=== PATIENT | female | born 1960 | race Caucasian/White ===

== ENCOUNTER → 2023-10-04 15:33 | Outpatient (REF) | payer BC, SELFPAY | LOC: RAD 15:33 | PROVIDERS: ATTENDING PHYSICIAN Orthopaedic Surgery; FAMILY PHYSICIAN Family Medicine | DX: M25.511 Pain in right shoulder (principal) | CPT/HCPCS: 73200 ==

== ENCOUNTER 2023-10-12 06:06 | Day surgery (SDC) | payer BC, SELFPAY ==
[2023-10-08 13:46] VITALS: BMI 35.1
[2023-10-08 14:38] LABS: Hematocrit 39.3 % (37.0-47.0); Hemoglobin 13.8 g/dL (12.0-16.0); Mean Corp Hgb Conc. 35.1 g/dL (33.0-37.0); Mean Corpuscular Hgb 31.1 pg (27.0-31.0); Mean Corpuscular Volume 88.5 fL (81.0-99.0); Mean Platelet Volume 10.3 fL (7.4-10.4); Platelet Count 323 10^3/uL (130-400); Red Blood Cell Count 4.44 10^6/uL (4.20-5.40); Red Cell Dist. Width 12.7 % (11.5-14.5); White Blood Cell Count 8.5 10^3/uL (4.8-10.8)
[2023-10-08 15:15] LABS: ALT (SGPT) 25 U/L (0-35); AST (SGOT) 26 U/L (14-36); Albumin 4.2 g/dl (3.5-5.0); Alkaline Phosphatase 86 U/L (38-126); Blood Urea Nitrogen 19 mg/dl (7-17); Calcium 10.3 mg/dl (8.4-10.2); Carbon Dioxide 26 mmol/L (22-30); Chloride 106 mmol/L (98-107); Estimated Creatinine Clearance 104 ml/min; Glucose 78 mg/dl (70-99); Potassium 4.6 mmol/L (3.5-5.1); Sodium 140 mmol/L (135-145); Total Bilirubin 0.8 mg/dl (0.2-1.3); Total Protein 6.4 g/dl (6.3-8.2); eGFR > 60.00
[2023-10-09 15:47] LABS: Glycohemoglobin (HgbA1c) 5.4 % (4.0-5.6)
[2023-10-12] VITALS (9 sets, daily range): BP systolic 108–140; BP diastolic 65–94; BMI 35.1
[2023-10-12] MEDS: CELEBREX 200 MG PO (06:20)
[2023-10-12] MEDS: TYLENOL 1000 MG PO (06:21)
[2023-10-12] MEDS: NORMOSOL-R 1000 IV (06:40)
[2023-10-12] MEDS: ANCEF 5 IV (12:03)
== END 2023-10-12 12:32 | disposition home or self-care (01) ==
LOC: SDS 06:06
PROVIDERS: ATTENDING PHYSICIAN Orthopaedic Surgery; FAMILY PHYSICIAN Family Medicine
DX: S42.291A Other displaced fracture of upper end of right humerus, initial encounter for closed fracture (principal); W19.XXXA Unspecified fall, initial encounter
CPT/HCPCS: 23472; 36415; 73020; 80053; 83036; 85027; 87070; 93005; C1713; C1776

== ENCOUNTER 2023-11-02 18:05 | Outpatient (RCR) | payer BC, SELFPAY | END 2023-11-02 23:59 | disposition home or self-care (01) | LOC: RPT 18:05 | PROVIDERS: ATTENDING PHYSICIAN Orthopaedic Surgery; FAMILY PHYSICIAN Family Medicine | DX: Z47.1 Aftercare following joint replacement surgery (principal); Z96.611 Presence of right artificial shoulder joint | CPT/HCPCS: 97010; 97110; 97140; 97161 ==

== ENCOUNTER → 2023-11-13 08:21 | Outpatient (REF) | payer BC, SELFPAY ==
[2023-11-13 10:32] LABS: ALT (SGPT) 31 U/L (0-35); AST (SGOT) 27 U/L (14-36); Albumin 4.3 g/dl (3.5-5.0); Alkaline Phosphatase 98 U/L (38-126); Blood Urea Nitrogen 17 mg/dl (7-17); Calcium 10.6 mg/dl (8.4-10.2); Carbon Dioxide 23 mmol/L (22-30); Chloride 105 mmol/L (98-107); Glucose 101 mg/dl (70-99); HDL Cholesterol 37 mg/dl; LDL Cholesterol, Calculated 130 mg/dl; Sodium 142 mmol/L (135-145); Total Bilirubin 0.7 mg/dl (0.2-1.3); Total Cholesterol 245 mg/dl (50-199); Total Protein 6.3 g/dl (6.3-8.2); Triglyceride 391 mg/dl (10-149); Very Low Density Lipoprotein 78 mg/dl (0-30); eGFR > 60.00
[2023-11-13 10:56] LABS: Microalbumin, Random Urine 1.2 mg/dl (0.6-1.7); Microalbumin/creatinine Ratio 13.4 mg/g
[2023-11-13 11:03] LABS: Glycohemoglobin (HgbA1c) 5.3 % (4.0-5.6)
== END ==
LOC: REG 08:21
PROVIDERS: ATTENDING PHYSICIAN Family Medicine; FAMILY PHYSICIAN Family Medicine
DX: E78.2 Mixed hyperlipidemia (principal); E83.52 Hypercalcemia; R73.9 Hyperglycemia, unspecified; Z00.00 Encounter for general adult medical examination without abnormal findings; R73.01 Impaired fasting glucose
CPT/HCPCS: 36415; 80053; 80061; 82043; 82570; 83036

== ENCOUNTER 2023-12-02 16:41 | Outpatient (RCR) | payer BC, SELFPAY | END 2023-12-02 23:59 | disposition home or self-care (01) | LOC: RPT 16:41 | PROVIDERS: ATTENDING PHYSICIAN Orthopaedic Surgery; FAMILY PHYSICIAN Family Medicine | DX: Z47.1 Aftercare following joint replacement surgery (principal); Z73.6 Limitation of activities due to disability; M62.81 Muscle weakness (generalized); M25.511 Pain in right shoulder; Z96.611 Presence of right artificial shoulder joint | CPT/HCPCS: 97010; 97110; 97140 ==

== ENCOUNTER 2023-12-28 15:44 | Outpatient (RCR) | payer BC, SELFPAY | END 2023-12-28 23:59 | disposition home or self-care (01) | LOC: RPT 15:44 | PROVIDERS: ATTENDING PHYSICIAN Orthopaedic Surgery; FAMILY PHYSICIAN Family Medicine | DX: Z47.1 Aftercare following joint replacement surgery (principal); Z73.6 Limitation of activities due to disability; M62.81 Muscle weakness (generalized); M25.511 Pain in right shoulder; Z96.611 Presence of right artificial shoulder joint | CPT/HCPCS: 97110; 97140 ==

== ENCOUNTER 2024-09-02 15:54 | Emergency (ER) | payer BC, SELFPAY ==
[2024-09-02 15:56] VITALS: BP 146/92
--- NOTE | 2024-09-02 16:42 | ED.GENMED ---
History of Present Illness
General
Chief Complaint: Skin Surface Trauma
Source: patient
Time Seen by Provider: 09/02/24 16:12
History of Present Illness
History of Present Illness:
64-year-old female presents to the emergency room complaining of bleeding from a shaving injury. Patient was shaving her left leg when she nicked her skin. This happened couple hours ago. She has been unable to get the bleeding to stop. She has
tried elevating her leg, putting pressure on it without relief. Her put a dressing on with tape that has been absorbing the blood but it still bleeding. No other injuries. Patient denies any oral anticoagulants.
Past History
Past History
ED Past Medical History: HTN and Other (Hyperparathyroidism, anemia)
ED Past Surgical History: and Other (Hernia repairs, thyroidectomy)
Social History
Tobacco: Non-smoker
Alcohol: None
Personal:
Living: with family
Employment: Employed
Family History
Family History: Negative Early CAD
Phy Exam
Physical Exam
Physical Exam:
General: Awake, Alert, Oriented X3. No acute distress.
Vitals: unremarkable
Head: Atraumatic
Eyes: Pupils equal, EOMI
Throat: Airway intact, no exudates
Neck: Trachea midline
Neuro: Nonfocal
Skin: Warm, dry, no rash
Extremities: pulses equal b/l, no edema. 2 mm skin neck or laceration anterior lower knee. Injury appears to have occurred over a superficial varicose vein.
Course
Vital Signs
Initial and Last Documented VS:
Initial Vital Signs
Temp Pulse Resp BP Pulse Ox
98.9 F 89 18 146/92 98
09/02/24 15:56 09/02/24 15:56 09/02/24 15:56 09/02/24 15:56 09/02/24 15:56
Last Documented Vital Signs
Temp Pulse Resp BP Pulse Ox
98.9 F 80 16 125/80 98
09/02/24 15:56 09/02/24 16:51 09/02/24 16:51 09/02/24 16:51 09/02/24 16:51
MDM/Problems Addressed
Differential Diagnosis Includes:
Laceration, varicose vein injury
MDM/Problems Addressed:
Patient has persistent bleeding from a small injury likely to the superficial varicose vein. Area injected with lidocaine and epi. Surgicel dressing placed with a compression dressing.
Bleeding well-controlled with dressing. Patient ambulated without recurrence of bleeding. Stable for discharge home.
*Pulse Oximetry
SaO2: 98
Oxygen Mode of Delivery: Room air
Patient hypoxic: no
*Critical Care Note
Total Time (30-74mins, 75-104mins- exclusive of procedures): Not Applicable
ED Attending Note
-
Portions of this chart may have been created with voice recognition software.� Occasional wrong word or��sound alike� substitutions may have occurred due to the inherent limitations of voice recognition software.
Discharge Plan
Departure
Patient Disposition: Home (Routine Discharge)
Date of Disposition: 09/02/24
Time of Disposition: 17:39
Patient with high blood pressure during this ER visit?: No
Condition: Good
Discharge Problem:
Bleeding from varicose vein
Instructions: Wound Care (DC)
Prescriptions:
No Action
lisinopril 20 MG tablet
20 mg PO QPM
atorvastatin 10 MG tablet
10 mg PO QPM
cholecalciferol (vitamin D3) 2,000 UNITS tablet
2,000 units PO QPM
hydrocodone-acetaminophen 5-325 mg Tablet
1 tab PO PRN PRN (Reason: pain)
mupirocin 2 % Ointment Kit
1 applic TOPICAL BID
Interventions
Interventions:
*Risk Screen - Suicide Last Done: 09/02/24 15:56
*General Assessment Last Done: 09/02/24 16:48
*Neglect/Abuse Screening Last Done: 09/02/24 15:56
*ED- Fall Risk Assessment Last Done: 09/02/24 16:48
*ED COVID-19 Vaccine History Last Done: 09/02/24 16:48
*Nursing Disposition Last Done: 09/02/24 18:03
ED-Skin Assessment Last Done: 09/02/24 16:48
Discharge Date and Time
Discharge Date/Time: 09/02/24 18:03
Print Language: SPANISH
[2024-09-02 16:51] VITALS: BP 125/80
== END 2024-09-02 18:03 | disposition home or self-care (01) ==
LOC: EMR 15:54
PROVIDERS: EMERGENCY PHYSICIAN Emergency Medicine; FAMILY PHYSICIAN Family Medicine
DX: I83.892 Varicose veins of left lower extremity with other complications (principal); S81.012A Laceration without foreign body, left knee, initial encounter; W26.8XXA Contact with other sharp object(s), not elsewhere classified, initial encounter; Y93.E8 Activity, other personal hygiene; I10 Essential (primary) hypertension; E21.3 Hyperparathyroidism, unspecified; D64.9 Anemia, unspecified
CPT/HCPCS: 99282

== ENCOUNTER 2024-10-04 20:00 | Emergency (ER) | payer BC, SELFPAY ==
[2024-10-04 20:04] VITALS: BP 129/84
[2024-10-04 21:12] VITALS: BP 133/80
--- NOTE | 2024-10-04 21:15 | ED.GENMED ---
History of Present Illness
General
Chief Complaint: Musculo-Skeletal Complaint
Source: patient
Exam Limitations: none
Time Seen by Provider: 10/04/24 21:03
Nursing documentation reviewed up to this point in time: agreed with
History of Present Illness
History of Present Illness:
Patient presents to ED for evaluation after left shoulder injury, shortly prior to arrival, when she missed the last step inside her house, and fell onto her left shoulder and back. Denies any other injuries from the fall. Denies head injury.
Denies neck pain. Denies loss of sensation or weakness.
Past History
Past History
ED Past Medical History: HTN and Other (Hyperparathyroidism, anemia)
ED Past Surgical History: and Other (Hernia repairs, thyroidectomy)
Social History
Tobacco: Non-smoker
Alcohol: None
Personal:
Living: with family
Employment: Employed
Family History
Family History: Negative Early CAD
Review of Systems
Review of Systems
Allergies reviewed?: Yes
All Other Systems: ROS reviewed and negative except as documented in HPI and ROS
Constitutional: Reports no symptoms
Musculoskeletal: Reports other (Shoulder injury)
Skin: Reports no symptoms
Neurological: Reports no symptoms
Phy Exam
Physical Exam
Physical Exam:
Physical Exam
General: mild painful distress, not acutely ill. afebrile
Head: nc/at. eomi
Neck: supple. normal range of motion
Neuro: alert and oriented x 3. no focal neurological deficits
Skin: no rash
Psychiatric: well kept. interactive and cooperative
Extremities: diffuse left shoulder tenderness to palpation without obvious deformity
Course
Orders/Labs/Results
Orders:
Orders
10/04/24 20:02
Shoulder, Left 2 View CR [CR Shoulder - Left Min 2 View*] Urgent
Comment:
Reason For Exam: pain, possible dislocation.
10/04/24 21:14
Ice Pack-Treatment DIRECTED
Location: Left shoulder
Ibuprofen [Motrin] 400 mg PO NOW STA
Oxycodone/Acetaminophen [Percocet 5/325] 1 tablet PO NOW STA
Vital Signs
Initial and Last Documented VS:
Initial Vital Signs
Temp Pulse Resp BP Pulse Ox
98.5 F 68 16 129/84 99
10/04/24 20:04 10/04/24 20:04 10/04/24 20:04 10/04/24 20:04 10/04/24 20:04
Last Documented Vital Signs
Temp Pulse Resp BP Pulse Ox
98.5 F 66 18 133/80 98
10/04/24 20:04 10/04/24 21:13 10/04/24 21:13 10/04/24 21:12 10/04/24 21:15
MDM/Problems Addressed
MDM/Problems Addressed:
History, exam, and x-ray consistent with left humeral head fracture. Patient otherwise remains neurovascularly intact. Patient will be placed on arm sling, and referred to her orthopedic surgeon for an outpatient consultation. Patient discharged
home in stable condition, to the care of her spouse.
*Pulse Oximetry
SaO2: 98
Oxygen Mode of Delivery: Room air
Patient hypoxic: no
*Critical Care Note
Total Time (30-74mins, 75-104mins- exclusive of procedures): Not Applicable
ED Attending Note
-
Portions of this chart may have been created with voice recognition software.� Occasional wrong word or��sound alike� substitutions may have occurred due to the inherent limitations of voice recognition software.
Discharge Plan
Departure
Patient Disposition: Home (Routine Discharge)
Date of Disposition: 10/04/24
Time of Disposition: 21:15
Patient with high blood pressure during this ER visit?: Yes
Condition: Good
Discharge Problem:
Fracture of shoulder
Instructions: How to Use a Shoulder Sling, Shoulder or upper arm fracture
Prescriptions:
New
oxycodone-acetaminophen [Percocet] 5-325 mg Tablet
1 tab PO Q6HPRN PRN (Reason: pain) Qty: 12 0RF
No Action
lisinopril 20 MG tablet
20 mg PO QPM
atorvastatin 10 MG tablet
10 mg PO QPM
cholecalciferol (vitamin D3) 2,000 UNITS tablet
2,000 units PO QPM
hydrocodone-acetaminophen 5-325 mg Tablet
1 tab PO PRN PRN (Reason: pain)
mupirocin 2 % Ointment Kit
1 applic TOPICAL BID
Referrals:
Ananda Giordano MD [Active, Orthopedics]
Activity Restrictions/Additional Instructions:
As discussed, please follow-up with your orthopedic surgeon for further evaluation and treatment. Your prescription has been sent electronically to [facility] pharmacy in [place]
Interventions
Interventions:
*Risk Screen - Suicide Last Done: 10/04/24 20:04
*General Assessment Last Done: 10/04/24 21:09
*Neglect/Abuse Screening Last Done: 10/04/24 20:04
*ED- Fall Risk Assessment Last Done: 10/04/24 21:09
*ED COVID-19 Vaccine History Last Done: 10/04/24 21:09
*Nursing Disposition Last Done: 10/04/24 21:29
ED-Musculoskeletal Assessment Last Done: 10/04/24 21:09
Discharge Date and Time
Discharge Date/Time: 10/04/24 21:37
Print Language: GREEK
[2024-10-04] MEDS: PERCOCET 5/325 1 TABLET PO (21:22)
[2024-10-04] MEDS: MOTRIN 400 MG PO (21:22)
== END 2024-10-04 21:37 | disposition home or self-care (01) ==
LOC: EMR 20:00
PROVIDERS: EMERGENCY PHYSICIAN Emergency Medicine; FAMILY PHYSICIAN Family Medicine
DX: S42.92XA Fracture of left shoulder girdle, part unspecified, initial encounter for closed fracture (principal); W19.XXXA Unspecified fall, initial encounter; I10 Essential (primary) hypertension; E21.3 Hyperparathyroidism, unspecified; D64.9 Anemia, unspecified
CPT/HCPCS: 99283; 73030

== ENCOUNTER → 2024-10-06 14:15 | Outpatient (REF) | payer BC, SELFPAY | LOC: HWRAD 14:15 | PROVIDERS: ATTENDING PHYSICIAN Orthopaedic Surgery; FAMILY PHYSICIAN Physician Assistant | DX: M25.512 Pain in left shoulder (principal) | CPT/HCPCS: 73200 ==

== ENCOUNTER 2024-10-10 05:56 | Day surgery (SDC) | payer BC, SELFPAY ==
[2024-10-09 14:30] VITALS: BMI 34.4
[2024-10-09 14:36] LABS: Hematocrit 40.2 % (37.0-47.0); Hemoglobin 13.6 g/dL (12.0-16.0); Mean Corp Hgb Conc. 33.8 g/dL (33.0-37.0); Mean Corpuscular Volume 89.3 fL (81.0-99.0); Platelet Count 291 10^3/uL (130-400); Red Cell Dist. Width 12.7 % (11.5-14.5)
[2024-10-09 14:50] VITALS: BMI 34.4
[2024-10-09 15:12] LABS: ALT (SGPT) 38 U/L (0-35); AST (SGOT) 24 U/L (14-36); Albumin 4.3 g/dl (3.5-5.0); Alkaline Phosphatase 94 U/L (38-126); Blood Urea Nitrogen 20 mg/dl (7-17); Calcium 10.7 mg/dl (8.4-10.2); Carbon Dioxide 27 mmol/L (22-30); Chloride 107 mmol/L (98-107); Estimated Creatinine Clearance 95 ml/min; Glucose 90 mg/dl (70-99); Potassium 4.4 mmol/L (3.5-5.1); Sodium 141 mmol/L (135-145); Total Protein 6.8 g/dl (6.3-8.2); eGFR > 60.00
[2024-10-10] VITALS (14 sets, daily range): BP systolic 97–141; BP diastolic 64–95
[2024-10-10] MEDS: CELEBREX 200 MG PO (06:29)
[2024-10-10] MEDS: TYLENOL 1000 MG PO (06:30)
[2024-10-10] MEDS: NORMOSOL-R/PLASMALYTE-A 1000 IV (06:38)
[2024-10-10 07:51] LABS: Glycohemoglobin (HgbA1c) 5.3 % (4.0-5.6)
[2024-10-10] MEDS: DILAUDID 0.25 MG IV (10:42)
[2024-10-10] MEDS: ANCEF 5 IV (11:59)
== END 2024-10-10 12:50 | disposition home or self-care (01) ==
LOC: SDS 05:56
PROVIDERS: ATTENDING PHYSICIAN Orthopaedic Surgery; FAMILY PHYSICIAN Family Medicine
DX: S42.292A Other displaced fracture of upper end of left humerus, initial encounter for closed fracture (principal); W19.XXXA Unspecified fall, initial encounter; Y92.008 Other place in unspecified non-institutional (private) residence as the place of occurrence of the external cause
CPT/HCPCS: 23472; C1776; 36415; 73020; 80053; 83036; 85027; 87070; 93005; C1713

== ENCOUNTER 2024-11-01 19:00 | Outpatient (RCR) | payer BC, SELFPAY | END 2024-11-01 23:59 | disposition home or self-care (01) | LOC: RPT 19:00 | PROVIDERS: ATTENDING PHYSICIAN Orthopaedic Surgery; FAMILY PHYSICIAN Family Medicine | DX: Z47.1 Aftercare following joint replacement surgery (principal); S42.292D Other displaced fracture of upper end of left humerus, subsequent encounter for fracture with routine healing; Z73.6 Limitation of activities due to disability; M62.81 Muscle weakness (generalized); W10.9XXD Fall (on) (from) unspecified stairs and steps, subsequent encounter; Z96.612 Presence of left artificial shoulder joint | CPT/HCPCS: 97010; 97110; 97140; 97161 ==

== ENCOUNTER 2024-12-04 16:08 | Outpatient (RCR) | payer BC, SELFPAY | END 2024-12-04 23:59 | disposition home or self-care (01) | LOC: RPT 16:08 | PROVIDERS: ATTENDING PHYSICIAN Orthopaedic Surgery; FAMILY PHYSICIAN Family Medicine | DX: Z47.1 Aftercare following joint replacement surgery (principal); S42.292D Other displaced fracture of upper end of left humerus, subsequent encounter for fracture with routine healing; Z73.6 Limitation of activities due to disability; M62.81 Muscle weakness (generalized); W10.9XXD Fall (on) (from) unspecified stairs and steps, subsequent encounter; Z96.612 Presence of left artificial shoulder joint | CPT/HCPCS: 97010; 97110; 97112; 97140 ==

== ENCOUNTER 2024-12-25 11:27 | Outpatient (RCR) | payer BC, SELFPAY | END 2024-12-25 23:59 | disposition home or self-care (01) | LOC: RPT 11:27 | PROVIDERS: ATTENDING PHYSICIAN Orthopaedic Surgery; FAMILY PHYSICIAN Family Medicine | DX: Z47.1 Aftercare following joint replacement surgery (principal); S42.292D Other displaced fracture of upper end of left humerus, subsequent encounter for fracture with routine healing; Z73.6 Limitation of activities due to disability; M62.81 Muscle weakness (generalized); W10.9XXD Fall (on) (from) unspecified stairs and steps, subsequent encounter; Z96.612 Presence of left artificial shoulder joint | CPT/HCPCS: 97110; 97112; 97140 ==

== ENCOUNTER → 2025-02-02 14:28 | Outpatient (REF) | payer BC, SELFPAY | LOC: WDC 14:28 | PROVIDERS: FAMILY PHYSICIAN Physician Assistant | DX: Z12.31 Encounter for screening mammogram for malignant neoplasm of breast (principal); Z96.612 Presence of left artificial shoulder joint; S42.292D Other displaced fracture of upper end of left humerus, subsequent encounter for fracture with routine healing | CPT/HCPCS: 77063; 77067; 77080 ==